=== PATIENT | male | born 1965 | race Caucasian/White ===

== ENCOUNTER → 2017-02-09 | Outpatient (CLI) | payer BC ==
[~2017-02-09] MED LIST: ASPI-435 PO; LEVO200T PO; METO-217 PO; MULTCAP42 PO; SIMV80TA2 PO
[2017-02-09 10:04] LABS: BLOOD UREA NITROGEN 15 mg/dl (7-18); BUN/CREATININE RATIO 15.3 (10-20); CARBON DIOXIDE 25 mmol/L (21-32); CHLORIDE 107 mmol/L (98-107); CHOLESTEROL 158 mg/dl (0-200); GLUCOSE 127 mg/dl (70-99); POTASSIUM 4.1 mmol/L (3.5-5.1); SODIUM 140 mmol/L (136-145); TRIGLYCERIDES 190 mg/dl (0-150); VERY LOW DENSITY LIPOPROT CALC 38 mg/dl
[2017-02-09 10:15] LABS: CHOLESTEROL/HDL RATIO 4.2; HDL CHOLESTEROL 38 mg/dl; LDL CHOLESTEROL CALCULATED 82 mg/dl
[2017-02-09 10:18] LABS: ESTIMATED AVERAGE GLUCOSE 137 mg/dl; HA1C FLAG Normal (Normal)
== END | disposition home or self-care (01) ==
LOC: C.LAB1850 07:23
PROVIDERS: ATTEND Nurse Practitioner Family
DX: I25.10 Atherosclerotic heart disease of native coronary artery without angina pectoris (principal); E78.5 Hyperlipidemia, unspecified; E03.9 Hypothyroidism, unspecified; I10 Essential (primary) hypertension; R73.9 Hyperglycemia, unspecified

== ENCOUNTER → 2017-08-18 | Outpatient (CLI) | payer BC ==
[2017-08-18 16:41] LABS: ALBUMIN 4.1 gm/dl (3.4-5.0); ALT/SGPT 33 U/L (12-78); AST/SGOT 16 U/L (15-37); BLOOD UREA NITROGEN 16 mg/dl (7-18); CARBON DIOXIDE 28 mmol/L (21-32); CREATININE 1.02 mg/dl (0.60-1.40); GLUCOSE 123 mg/dl (70-99); POTASSIUM 3.8 mmol/L (3.5-5.1); SODIUM 137 mmol/L (136-145)
[2017-08-18 16:52] LABS: ALKALINE PHOSPHATASE 88 U/L (45-117); CHOLESTEROL 175 mg/dl (0-200); LDL CHOLESTEROL CALCULATED 83 mg/dl; TOTAL PROTEIN 7.9 gm/dl (6.4-8.2)
[2017-08-19 07:26] LABS: HEMOGLOBIN A1C 6.6 % (4.5-5.6)
== END | disposition home or self-care (01) ==
LOC: C.LAB1850 15:05
PROVIDERS: ATTEND Nurse Practitioner Family
DX: I25.10 Atherosclerotic heart disease of native coronary artery without angina pectoris (principal); E78.5 Hyperlipidemia, unspecified; N52.9 Male erectile dysfunction, unspecified; R73.9 Hyperglycemia, unspecified; E03.9 Hypothyroidism, unspecified; I10 Essential (primary) hypertension